=== PATIENT | female | born 1995 | race Caucasian/White ===

== ENCOUNTER 2020-12-09 13:32 | Emergency (ER) | payer OTHER ==
[2020-12-09 14:40] LABS: HEMOGLOBIN 13.6 gm/dl (12.3-15.3); RED BLOOD COUNT 4.3 M/UL (4.00-5.10); WHITE BLOOD COUNT 6.8 K/UL (4.5-11.0)
[2020-12-09 15:00] LABS: BUN/CREATININE RATIO 14 (0-10)
[2020-12-09] MEDS ORDERED: OMNICEF 300 MG300 MG PO (17:24)
[2020-12-09] MEDS ORDERED: PERCOCET 5-3251 EACH PO (17:24)
[2020-12-09] MEDS ORDERED: ZOFRAN ODT 4 MG4 MG PO (17:24)
== END 2020-12-09 18:40 | disposition home or self-care (01) ==
LOC: ER1 13:32
PROVIDERS: Family Medicine
DX: N13.2 Hydronephrosis with renal and ureteral calculous obstruction (principal); Z79.899 Other long term (current) drug therapy
CPT/HCPCS: 80053; 81001; 83690; 84703; 85025; 96374; 96375; 96376; 99284; J0696; J1885; J2270; J2405